=== PATIENT | male | born 1965 | race Caucasian/White ===

== ENCOUNTER → 2017-07-12 | Outpatient (CLI) | payer OTHER | LOC: LAB SHORT 10:14 → LAB 10:14 | DX: L72.3 Sebaceous cyst (principal); L02.212 Cutaneous abscess of back [any part, except buttock and flank] | CPT/HCPCS: 87070; 87075; 87205 ==

== ENCOUNTER 2020-02-01 11:45 | Day surgery (SDC) | payer BC ==
[~2020-02-01] VITALS: Ht 182.9 cm; Wt 79.0 kg
[~2020-02-01 11:45] MED LIST: OMEP20ER PO
== END 2020-02-01 13:58 | disposition home or self-care (01) ==
LOC: ORSCSDS 11:45
PROVIDERS: Surgery
PROC: 0DBP8ZX Excision of Rectum, Via Natural or Artificial Opening Endoscopic, Diagnostic (ICD-10-PCS; principal; 2020-02-01 13:00)
DX: Z12.11 Encounter for screening for malignant neoplasm of colon (principal); K62.1 Rectal polyp; F41.9 Anxiety disorder, unspecified; F17.220 Nicotine dependence, chewing tobacco, uncomplicated; Z79.899 Other long term (current) drug therapy
CPT/HCPCS: 88305; J2250; J2704; J7120

== ENCOUNTER 2020-02-23 11:26 | Day surgery (SDC) | payer BC ==
[~2020-02-23] VITALS: Ht 182.9 cm; Wt 82.4 kg
== END 2020-02-23 14:05 | disposition home or self-care (01) ==
LOC: ORSCSDS 11:26
PROVIDERS: Surgery
PROC: 0JB70ZZ Excision of Back Subcutaneous Tissue and Fascia, Open Approach (ICD-10-PCS; principal; 2020-02-23 12:45)
DX: R22.2 Localized swelling, mass and lump, trunk (principal); L72.8 Other follicular cysts of the skin and subcutaneous tissue; F41.9 Anxiety disorder, unspecified
CPT/HCPCS: 88304; J7120